=== PATIENT | female | born 1955 | race Caucasian/White ===

== ENCOUNTER 2020-08-29 16:58 | Inpatient (IN) | payer BC, MEDICARE, OTHER ==
[2020-08-29] MEDS ORDERED: Ondansetron ODT 4 MG TAB PO PRN (20:56)
[2020-08-29] MEDS ORDERED: Guaifenesin DM 100-10/5 ML UDCUP PO PRN (20:56)
[2020-08-29] MEDS ORDERED: Dextrose 50% Abboject 50 ML SYRINGE SLOW IVP PRN (21:30)
[2020-08-29] MEDS: HumaLOG 300 UNITS/3 ML VIAL SC PRN (22:26)
[2020-08-29] MEDS: Doxycycline 100 MG CAP PO SCH (22:26)
[2020-08-29] MEDS: Apixaban 5 MG TAB PO SCH (22:26)
[2020-08-30] MEDS: Mometasone/Formoterol 200/5 60 PUFF INH SCH (07:00)
[2020-08-30] MEDS: Ipratropium/Albuterol Sulfate 4 GM AER IH SCH ×3 (07:30→20:15)
[2020-08-30] MEDS: HumaLOG 300 UNITS/3 ML VIAL SC PRN ×4 (08:30→20:18)
[2020-08-30] MEDS: Doxycycline 100 MG CAP PO SCH ×2 (08:30→20:14)
[2020-08-30] MEDS: predniSONE 10 MG TAB PO SCH (08:31)
[2020-08-30] MEDS: Apixaban 5 MG TAB PO SCH ×2 (08:31→20:14)
[2020-08-30] MEDS: Folic Acid 1 MG TAB PO SCH (08:31)
[2020-08-30] MEDS: Loratadine 10 MG TAB PO SCH (08:31)
[2020-08-30] MEDS ORDERED: Mometasone/Formoterol 60 PUFF AER INH SCH (09:00)
[2020-08-30] MEDS ORDERED: Ipratropium/Albuterol Sulfate 4 GM AER IH PRN (12:36)
--- NOTE | 2020-08-30 23:58 | HP ---
PRIMARY CARE PROVIDER: Tiana Mcmullen MD HISTORY OF PRESENT ILLNESS: Patient is a 65-year-old female with a history of COPD and rheumatoid arthritis, who presented to the hospital initially for evaluation of shortness of breath. Patient was found to have moderate to severe COVID pneumonia. She received treatment with 5 days of Remdesivir as well as convalescent plasma on day 5 of admission. She was treated with a total of 10 days of dexamethasone prior to discharge. At this time, she does report improvement in her respiratory symptoms; however, she does continue to require supplemental oxygen to maintain saturations. She also is continuing to experience some significant shortness of breath with exertion. Of note, patient also had new onset atrial fibrillation with rapid ventricular rate. She was started on a diltiazem drip for 24 hours and was successfully transitioned to oral rate control and anticoagulation. A cardiac evaluation with an echocardiogram and stress test were deferred due to patient's COVID positive state. She will need outpatient followup for this. PAST MEDICAL HISTORY: 1. COPD. 2. Rheumatoid arthritis. HOME MEDICATIONS: 1. Arnuity Ellipta 1 inhalation p.o. daily. 2. Methotrexate 2.5 mg p.o. q.7 days. 3. Breo Ellipta a 200-25 mcg 1 inhalation p.o. daily. 4. Combivent Respimat 1 puff inhaled q.i.d. 5. Eliquis 5 mg p.o. b.i.d. 6. Cetirizine 10 mg p.o. daily. 7. Diltiazem 120 mg p.o. daily. 8. Folic acid 1 mg p.o. daily. 9. Prevacid 50 mg p.o. daily. ALLERGIES: AZITHROMYCIN WHICH CAUSES ANGIOEDEMA. PAST SURGICAL HISTORY: None. FAMILY HISTORY: Significant for breast cancer and liver cancer. SOCIAL HISTORY: The patient is a former smoker, who quit 4 years ago. She denies any current alcohol and drug use. She currently works as a nurse at [employer]. REVIEW OF SYSTEMS: GENERAL: Patient reports fatigue. Denies fever. EYES: Patient denies vision changes or eye pain. ENT: Patient denies nasal congestion, sore throat. CARDIOVASCULAR: Patient denies chest pain, palpitations. RESPIRATORY: Patient does report shortness of breath and occasional cough. GASTROINTESTINAL: Patient denies abdominal pain, nausea, vomiting. GENITOURINARY: Patient denies dysuria or urinary frequency. SKIN: Patient denies rashes or skin changes. NEUROLOGICAL: Patient denies weakness, numbness, tingling. PSYCHIATRIC: Patient denies current symptoms of anxiety and depression. PHYSICAL EXAMINATION: VITALS: Temperature 97.7, pulse 80, respirations 20, oxygen 95% on 2 L, blood pressure 119/66. GENERAL: Patient is alert and oriented x3. She was seen and examined at the bedside. No distress. Resting comfortably. EYES: Extraocular muscles intact. No conjunctival injection. NECK: Supple. CARDIOVASCULAR: Regular rate and rhythm. No murmurs, rubs, or gallops. RESPIRATORY: Lungs are clear to auscultation bilaterally. Normal respiratory effort. ABDOMEN: Soft, nontender to palpation. No organomegaly. EXTREMITIES: Normal bulk and tone. No cyanosis, clubbing, or edema. PSYCHIATRIC: Appropriate mood and affect. Neurological: Cranial nerves 2-12 intact grossly. ASSESSMENT AND PLAN: The patient is a 65-year-old female with a history of physical deconditioning secondary to coronavirus disease 2019 pneumonia with past history of chronic obstructive pulmonary disease. 1. Coronavirus disease 2019 with pneumonia. We will continue antibiotic course with doxycycline for an additional 2 days. We will also continue steroid taper to conclude on September 06. We will continue to provide supplemental oxygen and wean as tolerated. We will continue physical therapy and occupational therapy to assist with physical deconditioning. Droplet precautions have been ordered and patient will be maintained on droplet and isolation precautions until 20 days have passed from her initial testing, which was August 18, so isolation should conclude on September 06. 2. Physical deconditioning. Resume physical therapy and occupational therapy. 3. Hyperglycemia. The patient has no known history of diabetes; however, blood sugars have been elevated with steroid treatments. We will cover with sliding scale insulin. We will monitor a.c. and h.s. Accu-Cheks. 4. New-onset atrial fibrillation, currently rate controlled with diltiazem. Continue anticoagulation with Eliquis. We will also defer cardiac evaluation on an outpatient basis. 5. Rheumatoid arthritis. We will continue to hold patient's methotrexate at least until her steroid treatment is discontinued. 6. Gastroesophageal reflux disease. Continue Prevacid. 7. Seasonal allergies. Continue cetirizine. 8. Chronic obstructive pulmonary disease. We will add treatment, continue patient's Combivent. Our formulary does not have Arnuity or Breo. We will initiate treatment with Dulera. 9. Deep vein thrombosis prophylaxis, Eliquis. CODE STATUS: DNR. I have discussed with patient at the bedside. Job ID: [id number]
[2020-08-31] MEDS: Doxycycline 100 MG CAP PO SCH ×2 (08:55→20:29)
[2020-08-31] MEDS: Folic Acid 1 MG TAB PO SCH (08:55)
[2020-08-31] MEDS: Apixaban 5 MG TAB PO SCH ×2 (08:56→20:29)
[2020-08-31] MEDS: predniSONE 10 MG TAB PO SCH (08:56)
[2020-08-31] MEDS: Loratadine 10 MG TAB PO SCH (08:56)
[2020-08-31] MEDS: HumaLOG 300 UNITS/3 ML VIAL SC PRN ×4 (08:57→21:09)
[2020-08-31] MEDS: Mometasone/Formoterol 200/5 60 PUFF INH SCH ×2 (08:58→20:29)
[2020-08-31] MEDS: Ipratropium/Albuterol Sulfate 4 GM AER IH SCH ×4 (09:08→19:00)
[2020-09-01] MEDS: Mometasone/Formoterol 200/5 60 PUFF INH SCH ×2 (08:38→19:59)
[2020-09-01] MEDS: Ipratropium/Albuterol Sulfate 4 GM AER IH SCH ×4 (08:38→19:58)
[2020-09-01] MEDS: Loratadine 10 MG TAB PO SCH (08:38)
[2020-09-01] MEDS: Apixaban 5 MG TAB PO SCH ×2 (08:39→19:58)
[2020-09-01] MEDS: predniSONE 10 MG TAB PO SCH (08:39)
[2020-09-01] MEDS: Folic Acid 1 MG TAB PO SCH (08:39)
[2020-09-01] MEDS: HumaLOG 300 UNITS/3 ML VIAL SC PRN ×2 (12:00→17:09)
[2020-09-02] MEDS: Ipratropium/Albuterol Sulfate 4 GM AER IH SCH ×4 (07:30→19:47)
[2020-09-02] MEDS: predniSONE 10 MG TAB PO SCH (07:51)
[2020-09-02] MEDS: HumaLOG 300 UNITS/3 ML VIAL SC PRN ×4 (07:52→20:31)
[2020-09-02] MEDS: Apixaban 5 MG TAB PO SCH ×2 (07:52→20:31)
[2020-09-02] MEDS: Loratadine 10 MG TAB PO SCH (07:52)
[2020-09-02] MEDS: Folic Acid 1 MG TAB PO SCH (07:52)
[2020-09-02] MEDS: Mometasone/Formoterol 200/5 60 PUFF INH SCH ×2 (07:55→19:39)
[2020-09-02] MEDS: Acetaminophen 325 MG TAB PO PRN (10:29)
[2020-09-03] MEDS: Ipratropium/Albuterol Sulfate 4 GM AER IH SCH ×4 (08:08→19:38)
[2020-09-03] MEDS: predniSONE 10 MG TAB PO SCH (08:09)
[2020-09-03] MEDS: Folic Acid 1 MG TAB PO SCH (08:09)
[2020-09-03] MEDS: Mometasone/Formoterol 200/5 60 PUFF INH SCH ×2 (08:09→19:39)
[2020-09-03] MEDS: Loratadine 10 MG TAB PO SCH (08:09)
[2020-09-03] MEDS: Apixaban 5 MG TAB PO SCH ×2 (08:09→19:48)
[2020-09-03] MEDS: HumaLOG 300 UNITS/3 ML VIAL SC PRN ×3 (08:10→17:09)
[2020-09-03] MEDS: Acetaminophen 325 MG TAB PO PRN (19:43)
[2020-09-03] MEDS: guaiFENesin/DM ER PO SCH (19:48)
[2020-09-04 05:33] LABS: Hemoglobin 11.6 g/dL (12.0-16.0); Platelet Count 132 thou/uL (130-400)
[2020-09-04] MEDS: Ipratropium/Albuterol Sulfate 4 GM AER IH SCH ×4 (08:09→19:05)
[2020-09-04] MEDS: Mometasone/Formoterol 200/5 60 PUFF INH SCH ×2 (08:09→19:05)
[2020-09-04] MEDS: guaiFENesin/DM ER PO SCH ×2 (08:10→19:52)
[2020-09-04] MEDS: Folic Acid 1 MG TAB PO SCH (08:10)
[2020-09-04] MEDS: predniSONE 10 MG TAB PO SCH (08:10)
[2020-09-04] MEDS: Loratadine 10 MG TAB PO SCH (08:10)
[2020-09-04] MEDS: Apixaban 5 MG TAB PO SCH ×2 (08:10→19:51)
[2020-09-04] MEDS: Acetaminophen 325 MG TAB PO PRN ×2 (10:11→19:51)
[2020-09-04] MEDS: HumaLOG 300 UNITS/3 ML VIAL SC PRN ×3 (12:08→20:40)
[2020-09-05] MEDS: Acetaminophen 325 MG TAB PO PRN ×2 (04:30→23:37)
[2020-09-05] MEDS: Mometasone/Formoterol 200/5 60 PUFF INH SCH ×2 (08:34→19:45)
[2020-09-05] MEDS: guaiFENesin/DM ER PO SCH ×2 (08:34→23:33)
[2020-09-05] MEDS: Ipratropium/Albuterol Sulfate 4 GM AER IH SCH ×4 (08:34→19:39)
[2020-09-05] MEDS: predniSONE 10 MG TAB PO SCH (08:35)
[2020-09-05] MEDS: Folic Acid 1 MG TAB PO SCH (08:36)
[2020-09-05] MEDS: Loratadine 10 MG TAB PO SCH (08:36)
[2020-09-05] MEDS: Apixaban 5 MG TAB PO SCH ×2 (08:36→23:33)
[2020-09-05] MEDS: HumaLOG 300 UNITS/3 ML VIAL SC PRN ×2 (12:19→16:37)
[2020-09-06] MEDS: Mometasone/Formoterol 200/5 60 PUFF INH SCH ×2 (07:48→19:39)
[2020-09-06] MEDS: Ipratropium/Albuterol Sulfate 4 GM AER IH SCH ×4 (07:50→19:37)
[2020-09-06] MEDS: guaiFENesin/DM ER PO SCH ×2 (09:29→19:41)
[2020-09-06] MEDS: predniSONE 10 MG TAB PO SCH (09:29)
[2020-09-06] MEDS: Apixaban 5 MG TAB PO SCH ×2 (09:29→19:41)
[2020-09-06] MEDS: Loratadine 10 MG TAB PO SCH (09:30)
[2020-09-06] MEDS: Folic Acid 1 MG TAB PO SCH (09:30)
[2020-09-06] MEDS: Acetaminophen 325 MG TAB PO PRN (14:05)
[2020-09-06] MEDS: HumaLOG 300 UNITS/3 ML VIAL SC PRN (17:48)
[2020-09-07 05:48] LABS: Hemoglobin 11.3 g/dL (12.0-16.0); Platelet Count 141 thou/uL (130-400)
[2020-09-07] MEDS: Ipratropium/Albuterol Sulfate 4 GM AER IH SCH ×4 (06:12→21:00)
[2020-09-07] MEDS: Mometasone/Formoterol 200/5 60 PUFF INH SCH ×2 (06:13→19:30)
[2020-09-07] MEDS: guaiFENesin/DM ER PO SCH ×2 (10:01→21:27)
[2020-09-07] MEDS: Acetaminophen 325 MG TAB PO PRN ×2 (10:02→21:33)
[2020-09-07] MEDS: Loratadine 10 MG TAB PO SCH (10:02)
[2020-09-07] MEDS: Folic Acid 1 MG TAB PO SCH (10:03)
[2020-09-07] MEDS: Apixaban 5 MG TAB PO SCH ×2 (10:03→21:27)
[2020-09-07] MEDS: HumaLOG 300 UNITS/3 ML VIAL SC PRN (21:53)
[2020-09-08] MEDS: Ipratropium/Albuterol Sulfate 4 GM AER IH SCH ×4 (06:30→20:18)
[2020-09-08] MEDS: Mometasone/Formoterol 200/5 60 PUFF INH SCH ×2 (06:31→20:19)
[2020-09-08] MEDS: guaiFENesin/DM ER PO SCH ×2 (09:41→20:30)
[2020-09-08] MEDS: Acetaminophen 325 MG TAB PO PRN (09:41)
[2020-09-08] MEDS: Folic Acid 1 MG TAB PO SCH (09:41)
[2020-09-08] MEDS: Loratadine 10 MG TAB PO SCH (09:43)
[2020-09-08] MEDS: Apixaban 5 MG TAB PO SCH ×2 (09:43→20:22)
[2020-09-08] MEDS ORDERED: traMADol HCl 50 MG TAB PO PRN (11:12)
[2020-09-08] MEDS: Gabapentin 300 MG CAP PO SCH ×2 (15:56→20:22)
[2020-09-08] MEDS: valACYclovir 500 MG TAB PO SCH (20:30)
[2020-09-09] MEDS: Mometasone/Formoterol 200/5 60 PUFF INH SCH ×2 (08:11→19:50)
[2020-09-09] MEDS: Ipratropium/Albuterol Sulfate 4 GM AER IH SCH ×4 (08:11→19:49)
[2020-09-09] MEDS: guaiFENesin/DM ER PO SCH ×2 (08:13→19:50)
[2020-09-09] MEDS: Loratadine 10 MG TAB PO SCH (08:13)
[2020-09-09] MEDS: Apixaban 5 MG TAB PO SCH ×2 (08:14→19:51)
[2020-09-09] MEDS: Folic Acid 1 MG TAB PO SCH (08:14)
[2020-09-09] MEDS: Gabapentin 300 MG CAP PO SCH ×2 (08:14→19:50)
[2020-09-09] MEDS: valACYclovir 500 MG TAB PO SCH ×3 (08:16→19:51)
[2020-09-09] MEDS: Acetaminophen 325 MG TAB PO PRN (20:01)
[2020-09-10] MEDS: Ipratropium/Albuterol Sulfate 4 GM AER IH SCH ×4 (08:31→20:34)
[2020-09-10] MEDS: Mometasone/Formoterol 200/5 60 PUFF INH SCH ×2 (08:31→20:34)
[2020-09-10] MEDS: Folic Acid 1 MG TAB PO SCH (08:32)
[2020-09-10] MEDS: guaiFENesin/DM ER PO SCH ×2 (08:32→20:37)
[2020-09-10] MEDS: Apixaban 5 MG TAB PO SCH ×2 (08:32→20:35)
[2020-09-10] MEDS: Loratadine 10 MG TAB PO SCH (08:33)
[2020-09-10] MEDS: valACYclovir 500 MG TAB PO SCH ×3 (08:33→20:36)
[2020-09-10] MEDS: Acetaminophen 325 MG TAB PO PRN ×2 (14:28→20:36)
[2020-09-10] MEDS: Gabapentin 300 MG CAP PO SCH (20:35)
[2020-09-11] MEDS: Ipratropium/Albuterol Sulfate 4 GM AER IH SCH ×4 (08:00→20:03)
[2020-09-11] MEDS: Mometasone/Formoterol 200/5 60 PUFF INH SCH ×2 (08:00→20:01)
[2020-09-11] MEDS: valACYclovir 500 MG TAB PO SCH ×3 (09:54→19:59)
[2020-09-11] MEDS: Apixaban 5 MG TAB PO SCH ×2 (09:55→19:59)
[2020-09-11] MEDS: Acetaminophen 325 MG TAB PO PRN (09:55)
[2020-09-11] MEDS: guaiFENesin/DM ER PO SCH ×2 (09:56→19:59)
[2020-09-11] MEDS: Folic Acid 1 MG TAB PO SCH (09:56)
[2020-09-11] MEDS: Loratadine 10 MG TAB PO SCH (09:56)
[2020-09-11] MEDS: Gabapentin 300 MG CAP PO SCH (19:59)
--- NOTE | 2020-09-11 22:31 | OP ---
DATE OF PROCEDURE: 09/09/2020 SUBJECTIVE: The patient was seen and examined at the bedside, in no distress. No complaints at this time. No adverse events overnight. OBJECTIVE: VITAL SIGNS: Temperature 98.1, pulse 97, blood pressure 109/71, respirations 16, oxygen 92% on room air. GENERAL: The patient is alert and oriented x3, in no distress. HEENT: Normocephalic, atraumatic. Extraocular muscles intact. CARDIOVASCULAR: Regular rate and rhythm. No murmurs, rubs, or gallops. LUNGS: Clear to auscultation bilaterally. No wheezes, crackles, rhonchi. SKIN: Healing papular rash on posterior right thigh. NEUROLOGIC: Cranial nerves 2-12 intact grossly. PSYCHIATRIC: Appropriate mood and affect. ASSESSMENT AND PLAN: The patient is a 65-year-old female with physical deconditioning secondary to COVID-19 pneumonitis. 1. Physical deconditioning. The patient has experienced significant improvement. We will continue physical therapy and occupational therapy. She did note that today was the first day that she was able to participate in physical therapy outside of the room. We will continue to monitor at this time. 2. Status post COVID pneumonitis. The patient is now maintaining oxygen saturations on room air in the low 90s, which is a significant improvement compared to prior. Droplet precautions have been discontinued. Patient's condition is improving. 3. Shingles noted on the posterior thigh. She has been started on valacyclovir to decrease viral shedding and gabapentin for pain control. Tramadol has been also ordered for severe pain; however patient states that she will not likely require this. 4. New onset atrial fibrillation, currently rate controlled with diltiazem, on anticoagulation with Eliquis. 5. Rheumatoid arthritis. We will continue to hold her methotrexate. 6. Gastroesophageal reflux disease. Continue Prevacid. 7. Seasonal allergies. Continue cetirizine. 8. Chronic obstructive pulmonary disease. Continue the patient's home regimen. 9. DVT prophylaxis, Eliquis. Job ID: [id number]
[2020-09-12] MEDS: Mometasone/Formoterol 200/5 60 PUFF INH SCH ×2 (08:00→18:36)
[2020-09-12] MEDS: Ipratropium/Albuterol Sulfate 4 GM AER IH SCH ×4 (08:00→18:36)
[2020-09-12] MEDS: Folic Acid 1 MG TAB PO SCH (09:00)
[2020-09-12] MEDS: valACYclovir 500 MG TAB PO SCH ×3 (09:00→21:52)
[2020-09-12] MEDS: guaiFENesin/DM ER PO SCH ×2 (09:00→21:52)
[2020-09-12] MEDS: Apixaban 5 MG TAB PO SCH ×2 (09:00→21:52)
[2020-09-12] MEDS: Loratadine 10 MG TAB PO SCH (09:00)
[2020-09-12] MEDS: Acetaminophen 325 MG TAB PO PRN (12:50)
[2020-09-12] MEDS: Hydrocortisone 1% Cream 30 GM TUBE TOP SCH ×2 (15:09→21:55)
--- NOTE | 2020-09-12 17:58 | PRG ---
DATE OF SERVICE: 09/12/2020 SUBJECTIVE: The patient is seen and examined during physical therapy today. She, of note, developed an erythematous maculopapular rash overnight, it is nonpruritic. No other concerns. States that she is progressing well with physical therapy. The patient overnight did have some tachycardia and palpitations. She was placed on oxygen. She noted to have some improvement with this afterwards. OBJECTIVE: VITAL SIGNS: Temperature 97.9, pulse 87, respirations 20, oxygen saturation 94% on room air, blood pressure 102/63. GENERAL: The patient is alert and oriented x3, in no distress. HEENT: Extraocular muscles intact. Normocephalic, atraumatic. HEART: Regular rate and rhythm. No murmurs, rubs, or gallops. LUNGS: Clear to auscultation bilaterally. No wheezes, rales, rhonchi, or crackles. EXTREMITIES: Normal bulk and tone. No peripheral edema. No calf tenderness. NEUROLOGIC: Cranial nerves 2 through 12 intact grossly. No focal motor deficits. PSYCHIATRIC: Appropriate mood and affect. ASSESSMENT AND PLAN: The patient is a 65-year-old female, status post COVID infection with physical deconditioning. 1. Physical deconditioning. Continue physical therapy and occupational therapy. The patient is experiencing significant improvement. Still does continue to get winded with therapy; however, this is improving. 2. Status post COVID pneumonitis. The patient is mostly maintaining oxygen on room air. Supplemental oxygen is available as needed. 3. Shingles. Continue valacyclovir and gabapentin. 4. Dermatitis. This may potentially be related to the medications that were started on Wednesday. However, this may be a delayed reaction. We will continue the patient's medications as this will help with her shingles. We will treat with topical steroid to see if this potentially may help resolve the appearance of the rash. 5. Gastroesophageal reflux disease. Continue Prevacid. 6. Rheumatoid arthritis. We will continue to hold the patient's methotrexate. 7. Chronic obstructive pulmonary disease. Continue the patient's home regimen. 8. Deep venous thrombosis prophylaxis, on Eliquis. Job ID: [id number]
[2020-09-12] MEDS: Gabapentin 300 MG CAP PO SCH (21:52)
[2020-09-13] MEDS: Apixaban 5 MG TAB PO SCH ×2 (08:41→20:03)
[2020-09-13] MEDS: guaiFENesin/DM ER PO SCH ×2 (08:42→20:01)
[2020-09-13] MEDS: Loratadine 10 MG TAB PO SCH (08:42)
[2020-09-13] MEDS: valACYclovir 500 MG TAB PO SCH ×3 (08:43→20:02)
[2020-09-13] MEDS: Mometasone/Formoterol 200/5 60 PUFF INH SCH ×2 (08:44→17:45)
[2020-09-13] MEDS: Ipratropium/Albuterol Sulfate 4 GM AER IH SCH ×4 (08:44→17:44)
[2020-09-13] MEDS: Folic Acid 1 MG TAB PO SCH (08:44)
[2020-09-13] MEDS: Hydrocortisone 1% Cream 30 GM TUBE TOP SCH ×2 (08:50→21:00)
[2020-09-13] MEDS: Gabapentin 300 MG CAP PO SCH (20:02)
[2020-09-14] MEDS: guaiFENesin/DM ER PO SCH ×2 (08:13→21:14)
[2020-09-14] MEDS: Folic Acid 1 MG TAB PO SCH (08:13)
[2020-09-14] MEDS: Apixaban 5 MG TAB PO SCH ×2 (08:13→21:14)
[2020-09-14] MEDS: Loratadine 10 MG TAB PO SCH (08:13)
[2020-09-14] MEDS: Mometasone/Formoterol 200/5 60 PUFF INH SCH ×2 (08:14→19:00)
[2020-09-14] MEDS: valACYclovir 500 MG TAB PO SCH ×3 (08:14→21:00)
[2020-09-14] MEDS: Ipratropium/Albuterol Sulfate 4 GM AER IH SCH ×4 (08:14→19:00)
[2020-09-14] MEDS: Hydrocortisone 1% Cream 30 GM TUBE TOP SCH ×2 (08:15→21:00)
[2020-09-14] MEDS ORDERED: Gabapentin 100 MG CAP PO SCH (10:30)
[2020-09-14] MEDS: Gabapentin 300 MG CAP PO SCH (21:13)
[2020-09-15] MEDS: guaiFENesin/DM ER PO SCH ×2 (08:07→20:23)
[2020-09-15] MEDS: Folic Acid 1 MG TAB PO SCH (08:07)
[2020-09-15] MEDS: Loratadine 10 MG TAB PO SCH (08:07)
[2020-09-15] MEDS: Apixaban 5 MG TAB PO SCH ×2 (08:09→20:24)
[2020-09-15] MEDS: valACYclovir 500 MG TAB PO SCH ×3 (08:09→20:24)
[2020-09-15] MEDS: Hydrocortisone 1% Cream 30 GM TUBE TOP SCH ×2 (08:11→20:23)
[2020-09-15] MEDS: Ipratropium/Albuterol Sulfate 4 GM AER IH SCH ×4 (08:13→20:27)
[2020-09-15] MEDS: Mometasone/Formoterol 200/5 60 PUFF INH SCH ×2 (08:13→20:26)
[2020-09-15] MEDS ORDERED: Gabapentin 100 MG CAP PO SCH (09:00)
[2020-09-15] MEDS: Gabapentin 300 MG CAP PO SCH (20:24)
[2020-09-16] MEDS: Ipratropium/Albuterol Sulfate 4 GM AER IH SCH ×4 (06:18→20:48)
[2020-09-16] MEDS: Mometasone/Formoterol 200/5 60 PUFF INH SCH ×2 (06:19→20:48)
[2020-09-16 06:58] LABS: Hemoglobin 10.5 g/dL (12.0-16.0); Platelet Count 209 thou/uL (130-400)
[2020-09-16 07:07] LABS: Calc. Creatinine Clearance 98 mL/min (70-130); Estimated GFR-MDRD Greater than 90
[2020-09-16] MEDS: guaiFENesin/DM ER PO SCH ×2 (09:04→20:47)
[2020-09-16] MEDS: Apixaban 5 MG TAB PO SCH ×2 (09:06→20:47)
[2020-09-16] MEDS: valACYclovir 500 MG TAB PO SCH ×2 (09:06→15:30)
[2020-09-16] MEDS: Loratadine 10 MG TAB PO SCH (09:06)
[2020-09-16] MEDS: Folic Acid 1 MG TAB PO SCH (09:06)
[2020-09-16] MEDS: Hydrocortisone 1% Cream 30 GM TUBE TOP SCH ×2 (09:07→20:48)
--- NOTE | 2020-09-16 11:31 | RAD ---
EXAM: Chest 2 views: HISTORY: Low oxygen saturation status post Covid pneumonia COMPARISON: 08/18/2020 FINDINGS: There is a normal-sized cardiomediastinal silhouette. Diffuse increased interstitial markings are pr esent. These appear chronic and superimposed airspace opacities may be present. No pleural effusion is seen. Degenerative changes are seen in the spine. IMPRESSION: Chronic interstitial lung disease with possible superimposed infiltrates.
[2020-09-16] MEDS: Acetaminophen 325 MG TAB PO PRN (14:22)
[2020-09-16 14:23] VITALS: BMI 23.9
[2020-09-16] MEDS: Gabapentin 300 MG CAP PO SCH (20:47)
[2020-09-17] MEDS: Ipratropium/Albuterol Sulfate 4 GM AER IH SCH ×4 (08:00→20:11)
[2020-09-17] MEDS: guaiFENesin/DM ER PO SCH ×2 (09:08→20:13)
[2020-09-17] MEDS: Loratadine 10 MG TAB PO SCH (09:08)
[2020-09-17] MEDS: Folic Acid 1 MG TAB PO SCH (09:09)
[2020-09-17] MEDS: Apixaban 5 MG TAB PO SCH ×2 (09:09→20:14)
[2020-09-17] MEDS: Hydrocortisone 1% Cream 30 GM TUBE TOP SCH ×2 (09:10→20:15)
[2020-09-17] MEDS: Mometasone/Formoterol 200/5 60 PUFF INH SCH ×2 (09:10→20:15)
[2020-09-17] MEDS: Gabapentin 300 MG CAP PO SCH (20:14)
[2020-09-18] MEDS: Ipratropium/Albuterol Sulfate 4 GM AER IH SCH ×4 (07:00→21:27)
[2020-09-18] MEDS: Apixaban 5 MG TAB PO SCH ×2 (09:53→21:27)
[2020-09-18] MEDS: Loratadine 10 MG TAB PO SCH (09:53)
[2020-09-18] MEDS: Folic Acid 1 MG TAB PO SCH (09:53)
[2020-09-18] MEDS: guaiFENesin/DM ER PO SCH ×2 (09:53→21:26)
[2020-09-18] MEDS: Hydrocortisone 1% Cream 30 GM TUBE TOP SCH ×2 (09:54→21:28)
[2020-09-18] MEDS: Mometasone/Formoterol 200/5 60 PUFF INH SCH ×2 (09:55→21:28)
[2020-09-18] MEDS: Acetaminophen 325 MG TAB PO PRN (11:32)
[2020-09-18] MEDS ORDERED: predniSONE 20 MG TAB PO SCH (13:00)
[2020-09-18] MEDS ORDERED: Amoxicillin/Potassium Clav 875 MG TAB PO SCH (13:00)
[2020-09-18 13:30] LABS: #Basophils 0.1 thou/uL (0.0-0.2); #Monocytes 0.4 thou/uL (0.11-0.59); %Basophils 1.4 % (0.0-1.0); %Lymphocytes 22.4 % (21.0-51.0); %Monocytes 9.2 % (0.0-10.0); %Neutrophils 66.1 % (42.0-75.0); Hemoglobin 10.9 g/dL (12.0-16.0); Mean Corpuscular Hemoglobin 28.8 pg (27.0-31.0); Mean Corpuscular Volume 87.3 fL (78.0-98.0); Mean Platelet Volume 6.4 fL (7.4-10.4); Platelet Count 274 thou/uL (130-400); RBC Distribution Width 15.8 % (11.5-14.5); White Blood Cell (WBC) Count 4.6 thou/uL (4.8-10.8)
[2020-09-18 13:37] LABS: ALT (SGPT) 25 U/L (8-55); AST (SGOT) 14 U/L (5-34); Albumin 3.5 g/dL (3.4-4.8); Alkaline Phosphatase 84 U/L (40-110); Anion Gap 13 mmol/L (10-20); BUN (Urea Nitrogen) 16 mg/dL (9.8-20.1); Bilirubin, Total 0.2 mg/dL (0.2-1.2); Calc. Creatinine Clearance 83 mL/min (70-130); Carbon Dioxide 23 mmol/L (23-31); Chloride 106 mmol/L (98-107); Estimated GFR-MDRD 83; Glucose 124 mg/dL (80-115); Potassium 3.7 mmol/L (3.5-5.1); Protein, Total 6.5 g/dL (6.0-8.3); Sodium 138 mmol/L (136-145)
[2020-09-18] MEDS: Amoxicillin/Potassium Clav 875 MG TAB PO SCH (21:27)
[2020-09-18] MEDS: Gabapentin 300 MG CAP PO SCH (21:27)
--- NOTE | 2020-09-19 03:25 | PRG ---
DATE OF SERVICE: SUBJECTIVE: Patient is experiencing shortness of breath with exertion. Again, she is also now requiring continuous supplemental oxygen to maintain saturations above 90%. She reports getting very, very easily fatigued and winded with exertion. Denies any fever or cough or chest pain or palpitations. She has no complaints at rest. OBJECTIVE: VITAL SIGNS: Temperature 97.8, pulse 98, oxygen 96% on 2 L, blood pressure 105/64. PHYSICAL EXAMINATION: GENERAL: Patient is alert and oriented x3, in no distress. HEENT: Normocephalic, atraumatic. Extraocular muscles intact. CARDIOVASCULAR: Regular rate and rhythm. No murmurs, rubs, or gallops. LUNGS: Clear to auscultation bilaterally. Mild crackles in the left base. SKIN: No rashes or lesions. ASSESSMENT AND PLAN: 1. Physical deconditioning. 2. Status post COVID pneumonia. 3. Dyspnea on exertion. 4. Chronic obstructive pulmonary disease. 5. Former tobacco abuse. 6. Rheumatoid arthritis. 7. Gastroesophageal reflux disease. Chest x-ray obtained previously did not show interval worsening of symptoms. We will plan to obtain CBC and comprehensive metabolic panel as well as a brain natriuretic peptide to assess for any concerns . We will also add on antibiotics and p.o. steroids to cover for any possible COPD exacerbation. If no improvement after these treatments, may consider repeat chest x-ray and possibly even a CT scan of the lungs. Continue supplemental oxygen. Continue patient's home inhaler regimen including Combivent and Dulera. Patient's home medications have been resumed. Continue physical therapy and occupational therapy for conditioning. We will also push incentive spirometry rather aggressively possible atelectasis. Job ID: [id number]
[2020-09-19] MEDS: Ipratropium/Albuterol Sulfate 4 GM AER IH SCH ×4 (08:18→21:52)
[2020-09-19] MEDS: predniSONE 20 MG TAB PO SCH (08:19)
[2020-09-19] MEDS: Folic Acid 1 MG TAB PO SCH (08:20)
[2020-09-19] MEDS: Loratadine 10 MG TAB PO SCH (08:20)
[2020-09-19] MEDS: Amoxicillin/Potassium Clav 875 MG TAB PO SCH ×2 (08:20→21:53)
[2020-09-19] MEDS: Apixaban 5 MG TAB PO SCH ×2 (08:20→21:54)
[2020-09-19] MEDS: Mometasone/Formoterol 200/5 60 PUFF INH SCH ×2 (08:21→21:57)
[2020-09-19] MEDS: guaiFENesin/DM ER PO SCH ×2 (08:22→21:55)
[2020-09-19] MEDS: Hydrocortisone 1% Cream 30 GM TUBE TOP SCH ×2 (09:45→21:56)
[2020-09-19] MEDS: HumaLOG 300 UNITS/3 ML VIAL SC PRN (16:23)
[2020-09-19] MEDS: Gabapentin 300 MG CAP PO SCH (21:53)
[2020-09-20] MEDS: guaiFENesin/DM ER PO SCH ×2 (08:13→19:59)
[2020-09-20] MEDS: Apixaban 5 MG TAB PO SCH ×2 (08:13→19:59)
[2020-09-20] MEDS: predniSONE 20 MG TAB PO SCH (08:14)
[2020-09-20] MEDS: Amoxicillin/Potassium Clav 875 MG TAB PO SCH ×2 (08:14→19:58)
[2020-09-20] MEDS: Loratadine 10 MG TAB PO SCH (08:14)
[2020-09-20] MEDS: Folic Acid 1 MG TAB PO SCH (08:14)
[2020-09-20] MEDS: Ipratropium/Albuterol Sulfate 4 GM AER IH SCH ×4 (08:15→19:56)
[2020-09-20] MEDS: Mometasone/Formoterol 200/5 60 PUFF INH SCH ×2 (08:15→20:00)
[2020-09-20] MEDS: Hydrocortisone 1% Cream 30 GM TUBE TOP SCH ×2 (08:15→19:57)
[2020-09-20] MEDS: HumaLOG 300 UNITS/3 ML VIAL SC PRN ×2 (17:40→20:47)
[2020-09-20] MEDS: Gabapentin 300 MG CAP PO SCH (19:59)
[2020-09-21] MEDS: Ipratropium/Albuterol Sulfate 4 GM AER IH SCH ×5 (08:41→19:54)
[2020-09-21] MEDS: predniSONE 20 MG TAB PO SCH (08:42)
[2020-09-21] MEDS: Folic Acid 1 MG TAB PO SCH (08:42)
[2020-09-21] MEDS: Amoxicillin/Potassium Clav 875 MG TAB PO SCH ×2 (08:42→19:51)
[2020-09-21] MEDS: Apixaban 5 MG TAB PO SCH ×2 (08:43→19:53)
[2020-09-21] MEDS: guaiFENesin/DM ER PO SCH ×2 (08:43→19:53)
[2020-09-21] MEDS: Loratadine 10 MG TAB PO SCH (08:44)
[2020-09-21] MEDS: Mometasone/Formoterol 200/5 60 PUFF INH SCH ×2 (08:44→19:54)
[2020-09-21] MEDS: Hydrocortisone 1% Cream 30 GM TUBE TOP SCH ×2 (08:44→19:55)
[2020-09-21] MEDS: HumaLOG 300 UNITS/3 ML VIAL SC PRN ×2 (17:13→20:34)
[2020-09-21] MEDS: Gabapentin 300 MG CAP PO SCH (19:52)
[2020-09-22] MEDS: predniSONE 20 MG TAB PO SCH (09:05)
[2020-09-22] MEDS: Folic Acid 1 MG TAB PO SCH (09:06)
[2020-09-22] MEDS: Apixaban 5 MG TAB PO SCH ×2 (09:06→20:52)
[2020-09-22] MEDS: guaiFENesin/DM ER PO SCH ×2 (09:06→20:52)
[2020-09-22] MEDS: Loratadine 10 MG TAB PO SCH (09:06)
[2020-09-22] MEDS: Amoxicillin/Potassium Clav 875 MG TAB PO SCH ×2 (09:06→20:52)
[2020-09-22] MEDS: Mometasone/Formoterol 200/5 60 PUFF INH SCH ×2 (09:07→20:58)
[2020-09-22] MEDS: Hydrocortisone 1% Cream 30 GM TUBE TOP SCH ×2 (09:07→20:57)
[2020-09-22] MEDS: Ipratropium/Albuterol Sulfate 4 GM AER IH SCH ×3 (11:58→20:49)
[2020-09-22] MEDS: HumaLOG 300 UNITS/3 ML VIAL SC PRN (17:08)
[2020-09-22] MEDS: Gabapentin 300 MG CAP PO SCH (20:52)
[2020-09-23] MEDS: Ipratropium/Albuterol Sulfate 4 GM AER IH SCH ×4 (07:45→19:59)
[2020-09-23] MEDS: guaiFENesin/DM ER PO SCH ×2 (09:38→19:52)
[2020-09-23] MEDS: predniSONE 20 MG TAB PO SCH (09:39)
[2020-09-23] MEDS: Loratadine 10 MG TAB PO SCH (09:39)
[2020-09-23] MEDS: Apixaban 5 MG TAB PO SCH ×2 (09:39→19:51)
[2020-09-23] MEDS: Hydrocortisone 1% Cream 30 GM TUBE TOP SCH ×2 (09:39→19:59)
[2020-09-23] MEDS: Folic Acid 1 MG TAB PO SCH (09:39)
[2020-09-23] MEDS: Amoxicillin/Potassium Clav 875 MG TAB PO SCH ×2 (09:39→19:51)
[2020-09-23] MEDS: Mometasone/Formoterol 200/5 60 PUFF INH SCH (09:40)
[2020-09-23] MEDS: Gabapentin 300 MG CAP PO SCH (19:51)
[2020-09-24] MEDS: Mometasone/Formoterol 200/5 60 PUFF INH SCH ×3 (00:16→20:45)
[2020-09-24] MEDS: Apixaban 5 MG TAB PO SCH ×2 (08:37→20:43)
[2020-09-24] MEDS: Amoxicillin/Potassium Clav 875 MG TAB PO SCH ×2 (08:37→20:43)
[2020-09-24] MEDS: guaiFENesin/DM ER PO SCH ×2 (08:38→20:43)
[2020-09-24] MEDS: Folic Acid 1 MG TAB PO SCH (08:38)
[2020-09-24] MEDS: Loratadine 10 MG TAB PO SCH (08:38)
[2020-09-24] MEDS: Hydrocortisone 1% Cream 30 GM TUBE TOP SCH ×2 (08:39→20:44)
[2020-09-24] MEDS: Ipratropium/Albuterol Sulfate 4 GM AER IH SCH ×4 (08:40→20:44)
[2020-09-24] MEDS: Gabapentin 300 MG CAP PO SCH (20:43)
[2020-09-25] MEDS: Apixaban 5 MG TAB PO SCH ×2 (09:42→20:09)
[2020-09-25] MEDS: Amoxicillin/Potassium Clav 875 MG TAB PO SCH ×2 (09:42→20:08)
[2020-09-25] MEDS: guaiFENesin/DM ER PO SCH ×2 (09:42→20:08)
[2020-09-25] MEDS: Folic Acid 1 MG TAB PO SCH (09:43)
[2020-09-25] MEDS: Loratadine 10 MG TAB PO SCH (09:43)
[2020-09-25] MEDS: Mometasone/Formoterol 200/5 60 PUFF INH SCH ×2 (09:43→20:10)
[2020-09-25] MEDS: Ipratropium/Albuterol Sulfate 4 GM AER IH SCH ×4 (09:45→20:09)
[2020-09-25] MEDS: Hydrocortisone 1% Cream 30 GM TUBE TOP SCH ×2 (09:45→20:09)
[2020-09-25] MEDS: Acetaminophen 325 MG TAB PO PRN (12:34)
[2020-09-25] MEDS: Gabapentin 300 MG CAP PO SCH (20:08)
[2020-09-26 05:54] LABS: Hemoglobin 11.2 g/dL (12.0-16.0); Platelet Count 249 thou/uL (130-400)
[2020-09-26] MEDS: Folic Acid 1 MG TAB PO SCH (08:33)
[2020-09-26] MEDS: Amoxicillin/Potassium Clav 875 MG TAB PO SCH ×2 (08:33→20:37)
[2020-09-26] MEDS: Hydrocortisone 1% Cream 30 GM TUBE TOP SCH ×2 (08:34→20:40)
[2020-09-26] MEDS: Loratadine 10 MG TAB PO SCH (08:34)
[2020-09-26] MEDS: Apixaban 5 MG TAB PO SCH ×2 (08:34→20:28)
[2020-09-26] MEDS: Mometasone/Formoterol 200/5 60 PUFF INH SCH ×2 (08:35→20:38)
[2020-09-26] MEDS: Ipratropium/Albuterol Sulfate 4 GM AER IH SCH ×4 (08:35→20:38)
[2020-09-26] MEDS: guaiFENesin/DM ER PO SCH ×2 (08:35→20:30)
[2020-09-26] MEDS: Acetaminophen 325 MG TAB PO PRN ×2 (09:55→20:32)
[2020-09-26] MEDS: Gabapentin 300 MG CAP PO SCH (20:30)
[2020-09-27] MEDS: Folic Acid 1 MG TAB PO SCH (08:48)
[2020-09-27] MEDS: Apixaban 5 MG TAB PO SCH ×2 (08:48→20:15)
[2020-09-27] MEDS: Loratadine 10 MG TAB PO SCH (08:49)
[2020-09-27] MEDS: guaiFENesin/DM ER PO SCH ×2 (08:49→20:15)
[2020-09-27] MEDS: Hydrocortisone 1% Cream 30 GM TUBE TOP SCH ×2 (08:49→20:50)
[2020-09-27] MEDS: Ipratropium/Albuterol Sulfate 4 GM AER IH SCH ×4 (08:49→20:49)
[2020-09-27] MEDS: Mometasone/Formoterol 200/5 60 PUFF INH SCH ×2 (08:50→20:50)
[2020-09-27] MEDS: Acetaminophen 325 MG TAB PO PRN ×2 (12:34→20:16)
[2020-09-27 13:39] LABS: #Basophils 0.1 thou/uL (0.0-0.2); #Lymphocytes 1.3 thou/uL (1.20-3.40); #Monocytes 0.9 thou/uL (0.11-0.59); #Neutrophils 7.8 thou/uL (1.40-6.50); %Basophils 1.4 % (0.0-1.0); %Eosinophils 0.2 % (0.0-10.0); %Lymphocytes 12.4 % (21.0-51.0); Hemoglobin 11.9 g/dL (12.0-16.0); Mean Corpuscular HGB CONC 32.3 g/dL (32.0-36.0); Mean Corpuscular Volume 89.7 fL (78.0-98.0); Platelet Count 265 thou/uL (130-400); RBC Distribution Width 15.7 % (11.5-14.5); Red Blood Cell (RBC) Count 4.12 mill/uL (4.20-5.40); White Blood Cell (WBC) Count 10.1 thou/uL (4.8-10.8)
--- NOTE | 2020-09-27 14:41 | RAD ---
RADIOGRAPH CHEST 2 VIEW: DATE: 09/27/2020 TIME: 1:54 PM HISTORY: 65-year-old female with fever and cough COMPARISON: 09/16/2020 FINDINGS: There are diffuse chronic interstitial changes throughout both lungs. No pleural effusion, cardiomega ly, pneumothorax, or new consolidation. No interval change. IMPRESSION: 1) chronic interstitial lung disease and emphysema. 2) no interval change
[2020-09-27 14:55] LABS: Bilirubin Negative (Negative); Blood, Urine Negative (Negative); Clarity Clear (Clear); Glucose, Urine (Dipstick) Negative (Negative); Ketone, Urine Negative (Negative); Leukocyte Negative (Negative); Nitrite Negative (Negative); Protein, Urine (Dipstick) Negative (Neg-Trace); Urobilinogen 0.2 mg/dL (Less than 2)
[2020-09-27 15:37] LABS: Bacteria/HPF Rare-Few HPF (None Seen); RBC/HPF 0-3 HPF (0-3); Squamous Epithelial 0-3 HPF (0-3); WBC/HPF 0-3 HPF (0-3)
[2020-09-27] MEDS: Gabapentin 300 MG CAP PO SCH (20:15)
[2020-09-27 20:17] VITALS: TEMP 99.1
[2020-09-28 07:31] VITALS: BP 100/59
[2020-09-28] MEDS: guaiFENesin/DM ER PO SCH (09:17)
[2020-09-28] MEDS: Nystatin 500,000 UNITS/5 ML UDCUP SSW SCH ×2 (09:18→13:20)
[2020-09-28] MEDS: Apixaban 5 MG TAB PO SCH (09:18)
[2020-09-28] MEDS: Folic Acid 1 MG TAB PO SCH (09:18)
[2020-09-28] MEDS: Ipratropium/Albuterol Sulfate 4 GM AER IH SCH ×2 (09:19→13:19)
[2020-09-28] MEDS: Loratadine 10 MG TAB PO SCH (09:19)
[2020-09-28] MEDS: Mometasone/Formoterol 200/5 60 PUFF INH SCH (09:22)
[2020-09-28] MEDS: Hydrocortisone 1% Cream 30 GM TUBE TOP SCH (09:22)
== END 2020-09-28 15:55 | disposition home or self-care (01) | DRG 947 ==
LOC: MADMS 17:20
PROVIDERS: ADMIT Family Medicine; ATTEND Family Medicine
DX: R53.81 Other malaise (principal); U07.1 COVID-19; J12.89 Other viral pneumonia; J44.0 Chronic obstructive pulmonary disease with (acute) lower respiratory infection; J44.1 Chronic obstructive pulmonary disease with (acute) exacerbation; J98.11 Atelectasis; B37.0 Candidal stomatitis; J96.11 Chronic respiratory failure with hypoxia; K21.9 Gastro-esophageal reflux disease without esophagitis; Z66 Do not resuscitate; J30.2 Other seasonal allergic rhinitis; R73.9 Hyperglycemia, unspecified; M06.9 Rheumatoid arthritis, unspecified; Z79.01 Long term (current) use of anticoagulants; Z79.899 Other long term (current) drug therapy; Z87.891 Personal history of nicotine dependence; Z79.51 Long term (current) use of inhaled steroids; Z88.1 Allergy status to other antibiotic agents; Z80.3 Family history of malignant neoplasm of breast; Z80.8 Family history of malignant neoplasm of other organs or systems; L30.9 Dermatitis, unspecified; I48.0 Paroxysmal atrial fibrillation
CPT/HCPCS: 36415; 36416; 71046; 80053; 81001; 82565; 83880; 85014; 85018; 85025; 85049; 87804; 94664; J7512